=== PATIENT | female | born 1995 | race Caucasian/White ===

== ENCOUNTER 2024-07-05 10:04 | Emergency (ER) | payer OTHER, SELFPAY ==
[2024-07-05 10:12] VITALS: BP 119/82
[2024-07-05 11:01] LABS: % Basophils 0.7 % (0-2); % Eosinophils 0.5 % (0-6); % Immature Granulocytes 0.3 % (0-0.5); % Lymphocytes 24.9 % (20.5-51.1); % Monocytes 4.9 % (1.7-9.3); % Neutrophils 68.7 % (42.2-75.2); Absolute Basophils 0.1 10^3/uL (0-0.2); Absolute Eosinophils 0.1 10^3/uL (0-0.7); Absolute Lymphocytes 2.4 10^3/uL (1.2-3.4); Absolute Monocytes 0.5 10^3/uL (0.1-0.6); Absolute Neutrophils 6.5 10^3/uL (1.4-6.5); Hematocrit 38.3 % (37.0-47.0); Hemoglobin 12.6 g/dL (12.0-16.0); Mean Corp Hgb Conc. 32.9 g/dL (33.0-37.0); Mean Corpuscular Hgb 30.6 pg (27.0-31.0); Mean Platelet Volume 10.2 fL (7.4-10.4); Nucleated Red Blood Cells % 0 %; Platelet Count 277 10^3/uL (130-400); Red Blood Cell Count 4.12 10^6/uL (4.20-5.40); Red Cell Dist. Width 13.4 % (11.5-14.5); White Blood Cell Count 9.4 10^3/uL (4.8-10.8)
[2024-07-05 11:14] LABS: HCG, Serum Qualitative Screen Negative
[2024-07-05 11:19] LABS: ALT (SGPT) 14 U/L (0-35); AST (SGOT) 16 U/L (14-36); Albumin 3.7 g/dl (3.5-5.0); Alkaline Phosphatase 72 U/L (38-126); Blood Urea Nitrogen 7 mg/dl (7-17); Carbon Dioxide 21 mmol/L (22-30); Chloride 109 mmol/L (98-107); Glucose 114 mg/dl (70-99); Potassium 4.4 mmol/L (3.5-5.1); Sodium 138 mmol/L (135-145); Total Bilirubin 0.3 mg/dl (0.2-1.3); Total Protein 6.3 g/dl (6.3-8.2); eGFR > 60.00
[2024-07-05 11:44] VITALS: BMI 36.1
--- NOTE | 2024-07-05 11:56 | ED.GENMED ---
History of Present Illness
General
Chief Complaint: Medication Reaction
Time Seen by Provider: 07/05/24 11:56
History of Present Illness
History of Present Illness:
TIME OF INITIAL ENCOUNTER: 12 PM
HPI: Patient has been on Lexapro for years. There has been no changes in her dosing recently. Yesterday evening, she took an aazk-nky-nqpbfgk cough and cold medication which includes dextromethorphan. This morning she felt jittery with muscle
tremor and general unwell feeling. She feels well-hydrated. She declines IV fluids.
EXAM:
GENERAL: Well appearing in no distress, elevated BMI
HEENT: Moist oral mucosa
CARDIOVASCULAR: No murmurs, normal heart rate, regular rhythm, No chest wall tenderness
PULMONARY: No respiratory distress, breath sounds are clear and equal
ABDOMEN: Soft with no peritoneal signs, no tenderness
NEUROLOGIC: Excellent strength all extremities, no coordination deficits
PSYCHIATRIC: Appropriate mental status, normal insight and judgement, there is no clonus
EXTREMITIES: Nontender, no edema, moves all extremities equally
SKIN: No rash, no lesions
NUMBER AND COMPLEXITY OF PROBLEMS ADDRESSED AT THE ENCOUNTER
� Chronic conditions affecting care: Depression
� Acute Exacerbation and/or Progression of Chronic Illness: This is an acute problem
� Differential Diagnosis includes: Medication reaction, medication interaction, lab abnormality, electrolyte abnormality
AMOUNT AND/OR COMPLEXITY OF DATA TO BE REVIEWED AND ANALYZED
� I performed an independent evaluation of and my interpretation is:
EKG:
CT:
X-rays:
Laboratory Studies: CBC unremarkable, electrolytes relatively unremarkable, hCG negative
Other:
� Review of other/old records: No old records available for review
� Clinical information was obtained by an independent historian: I spoke to father and grandmother at bedside
� Prescriptions/Medications Considered but not given:
� Further testing considered but not performed:
RISK OF COMPLICATIONS AND/OR MORBIDITY OR MORTALITY OF PATIENT MANAGEMENT
� Social determinants of health affecting care: Lives at home
� Discussion with other providers:
� Escalation of care including admission/observation vs risk of discharge considered: Lexapro and dextromethorphan when used together can increase serotonergic effects�suspect that this interaction is the cause of her symptoms,
basic blood work unremarkable. She declines IV fluids. She spontaneously currently feels improved compared to how she felt earlier.
ANY OTHER UPDATES:
Phy Exam
Physical Exam
Physical Exam:
See HPI
Course
Orders/Labs/Results
Orders:
Orders
07/05/24 10:16
Test Result ONCE
07/05/24 10:45
Complete Blood Count/With Diff Urgent
Comprehensive Metabolic Panel Urgent
Creatine Phosphokinase Urgent
HCG, Serum Qualitative Screen Urgent
07/05/24 11:51
EKG [Electrocardiogram (*1)] Urgent
Reason for Study: Vertigo / Dizzy
EKG- Treatment ONCE
07/05/24 11:57
Add On- LAB Urgent
Tests Added?: ck
Abnormal Lab Results
07/05/24
10:45
RBC 4.12 L 10^6/uL
(4.20-5.40)
MCHC 32.9 L g/dL
(33.0-37.0)
Chloride 109 H mmol/L
(98-107)
Carbon Dioxide 21 L mmol/L
(22-30)
Glucose 114 H mg/dl
(70-99)
07/05/24 10:45
07/05/24 10:45
Vital Signs
Initial and Last Documented VS:
Initial Vital Signs
Temp Pulse Resp BP Pulse Ox
37.1 C 81 18 119/82 98
07/05/24 10:12 07/05/24 10:12 07/05/24 10:12 07/05/24 10:12 07/05/24 10:12
Last Documented Vital Signs
Temp Pulse Resp BP Pulse Ox
37.1 C 81 18 119/82 98
07/05/24 10:12 07/05/24 10:12 07/05/24 10:12 07/05/24 10:12 07/05/24 10:12
*Critical Care Note
Total Time (30-74mins, 75-104mins- exclusive of procedures): Not Applicable
ED Attending Note
-
Portions of this chart may have been created with voice recognition software.� Occasional wrong word or��sound alike� substitutions may have occurred due to the inherent limitations of voice recognition software.
Discharge Plan
Departure
Patient Disposition: Home (Routine Discharge)
Date of Disposition: 07/05/24
Time of Disposition: 12:41
Patient with high blood pressure during this ER visit?: Yes
Discharge Problem:
Adverse drug-drug interaction
Instructions: Adverse Drug Reactions, Adult ED, BLOOD PRESSURE
Referrals:
Familia Soni, DO [Family Provider] -
Activity Restrictions/Additional Instructions:
Your symptoms could be related to Lexapro use that worsened with the use of dextromethorphan�I recommend avoiding dextromethorphan (DM medications) in the future the CK level, creatinine kinase level was normal. Other basic blood work is
unremarkable. Return here if worse or other concerns.
Interventions
Interventions:
*Risk Screen - Suicide Last Done: 07/05/24 10:12
*General Assessment Last Done: 07/05/24 10:12
*Neglect/Abuse Screening Last Done: 07/05/24 10:12
ED- Fall Risk Assessment Last Done: 07/05/24 11:44
ED- Pulmonary Assessment Last Done: 07/05/24 11:44
Discharge Date and Time
Print Language: [place]
[2024-07-05 12:38] LABS: Creatine Phosphokinase 80 U/L (30-135)
== END 2024-07-05 13:02 | disposition home or self-care (01) ==
LOC: EMR 10:04
PROVIDERS: EMERGENCY PHYSICIAN Emergency Medicine; FAMILY PHYSICIAN Family Medicine Sports Medicine
DX: R25.1 Tremor, unspecified (principal); R42 Dizziness and giddiness; T43.225A Adverse effect of selective serotonin reuptake inhibitors, initial encounter; T43.635A Adverse effect of methylphenidate, initial encounter
CPT/HCPCS: 99284; 80053; 82550; 84703; 85025; 93005